=== PATIENT | female | born 1985 | race Caucasian/White ===

== ENCOUNTER 2021-04-26 07:21 | Day surgery (SDC) | payer OTHER ==
[2021-04-23 12:42] VITALS: BMI 35.2
[2021-04-26] MEDS ORDERED: Lidocaine 1% MPF 2 ML VIAL ONE (11:37)
[2021-04-26] MEDS ORDERED: Lidocaine 2% MPF 10 ML AMP (For Epidural Use) ONE (12:18)
[2021-04-26] MEDS ORDERED: PROPOFOL 40 ML ONE (12:18)
== END 2021-04-26 13:10 | disposition home or self-care (01) ==
LOC: CSHULT 07:21
PROVIDERS: ATTEND Internal Medicine Gastroenterology
PROC: 0DJ08ZZ Inspection of Upper Intestinal Tract, Via Natural or Artificial Opening Endoscopic (ICD-10-PCS; principal; 2021-04-26)
DX: R10.9 Unspecified abdominal pain (principal); K80.80 Other cholelithiasis without obstruction; K21.9 Gastro-esophageal reflux disease without esophagitis; K58.9 Irritable bowel syndrome, unspecified; F41.8 Other specified anxiety disorders; K44.9 Diaphragmatic hernia without obstruction or gangrene; F31.9 Bipolar disorder, unspecified; F17.210 Nicotine dependence, cigarettes, uncomplicated
CPT/HCPCS: 76700; J2704

== ENCOUNTER 2021-05-10 12:10 | Outpatient (CLI) | payer OTHER ==
[2021-05-10 20:28] LABS: SARS-CoV-2 PCR by NAA Not Detected (NotDetected)
== END 2021-05-10 12:11 | disposition home or self-care (01) ==
LOC: CSHLAB 12:10
PROVIDERS: ATTEND Surgery
DX: Z01.818 Encounter for other preprocedural examination (principal); Z20.822 Contact with and (suspected) exposure to COVID-19; R10.9 Unspecified abdominal pain
CPT/HCPCS: 93005; 93010; U0003; U0005

== ENCOUNTER 2021-05-13 09:34 | Day surgery (SDC) | payer OTHER ==
[2021-05-12 09:26] VITALS: BMI 34.7
[2021-05-13] MEDS ORDERED: Lidocaine 1% MPF 2 ML VIAL ONE (10:03)
[2021-05-13] MEDS ORDERED: Bupivacaine PF 0.5% 30 ML VIAL ONE (10:09)
[2021-05-13] MEDS ORDERED: Dexamethasone 4 mg/ml Vial ONE (10:23)
[2021-05-13] MEDS ORDERED: Ondansetron PF 4 MG/2 ML Vial ONE (10:23)
[2021-05-13] MEDS ORDERED: PROPOFOL 20 ML ONE (10:23)
[2021-05-13] MEDS ORDERED: Lidocaine 1% PF 5 ML VIAL ONE (10:23)
[2021-05-13] MEDS ORDERED: Rocuronium Bromide 10 MG/ML (10ML VIAL) ONE (10:23)
[2021-05-13] MEDS ORDERED: Ketorolac Tromethamine 30 MG/ML VIAL ONE (10:24)
[2021-05-13] MEDS ORDERED: Glycopyrrolate 0.2 MG/ML 5 ML SYRINGE ONE (10:24)
[2021-05-13] MEDS ORDERED: Fentanyl 250 MCG/5 ML VIAL ONE (11:05)
[2021-05-13] MEDS ORDERED: HYDROcodone/Acetaminophen 5/325 mg Tablet PO PRN (11:07)
[2021-05-13] MEDS ORDERED: EPINEPHrine 1 MG/ML AMP ONE (11:41)
[2021-05-13] MEDS ORDERED: HYDROmorphone 0.5 MG/0.5 ML SYRINGE ONE (12:12)
[2021-05-13] MEDS ORDERED: Promethazine HCl 25 MG/ML VIAL ONE (12:20)
[2021-05-13] MEDS ORDERED: Meperidine HCl/PF 25 MG/ML VIAL ONE (12:21)
== END 2021-05-13 13:44 | disposition home or self-care (01) ==
LOC: CSHSDC 09:34
PROVIDERS: ATTEND Surgery
PROC: 0FT44ZZ Resection of Gallbladder, Percutaneous Endoscopic Approach (ICD-10-PCS; principal; 2021-05-13)
DX: K80.10 Calculus of gallbladder with chronic cholecystitis without obstruction (principal); I10 Essential (primary) hypertension; F41.9 Anxiety disorder, unspecified; J45.909 Unspecified asthma, uncomplicated; F31.9 Bipolar disorder, unspecified
CPT/HCPCS: 88304; J0171; J0690; J1100; J1170; J1885; J2175; J2405; J2550; J2704; J3010; S0020